=== PATIENT | male | born 1955 | race Caucasian/White ===

== ENCOUNTER → 2017-09-02 | Outpatient (CLI) | payer OTHER | LOC: LAB 15:13 | PROVIDERS: Nurse Practitioner Family | DX: F41.0 Panic disorder [episodic paroxysmal anxiety] (principal) ==

== ENCOUNTER → 2018-05-09 | Outpatient (CLI) | payer MEDICARE ==
[2018-05-09 08:28] LABS: ALBUMIN 4.2 g/dL (3.5-5.0); BUN/CREATININE RATIO 19.5 (6.0-26.0); CALCIUM 9.1 mg/dL (8.4-10.2); POTASSIUM 4.1 mmol/L (3.6-5.0); TOTAL BILIRUBIN 0.6 mg/dL (0.2-1.3); TOTAL PROTEIN 7.4 g/dL (6.3-8.2)
== END ==
LOC: LAB 07:15
PROVIDERS: Family Medicine
DX: Z00.00 Encounter for general adult medical examination without abnormal findings (principal); Z12.5 Encounter for screening for malignant neoplasm of prostate; Z12.12 Encounter for screening for malignant neoplasm of rectum; E78.00 Pure hypercholesterolemia, unspecified; F41.8 Other specified anxiety disorders

== ENCOUNTER → 2018-10-08 | Outpatient (CLI) | payer MEDICARE | LOC: RAD 09:56 | DX: M50.322 Other cervical disc degeneration at C5-C6 level (principal) ==

== ENCOUNTER 2018-12-03 09:00 | Outpatient (RCR) | payer MEDICARE | END 2018-12-03 09:30 | disposition home or self-care (01) | LOC: PT 09:00 | DX: M50.322 Other cervical disc degeneration at C5-C6 level (principal); M25.512 Pain in left shoulder | CPT/HCPCS: G8979-GP; G8981-GP; G8982-GP; G8983-GP ==

== ENCOUNTER → 2019-02-28 | Outpatient (CLI) | payer MEDICARE ==
[~2019-02-28] VITALS: Ht 177.8 cm; Wt 72.7 kg
[~2019-02-28] MED LIST: ALTOPREV20 M1 PO; DESYREL50 MG PO; ZOLOFT25 M1 PO
[2019-02-28 09:30] VITALS: BP 135/77
[2019-02-28 10:36] LABS: HEMATOCRIT 44.3 % (42.0-52.0); HEMOGLOBIN 14.4 g/dL (13.5-18.0); LYMPHOCYTE 23 % (20-51); MEAN CELL VOLUME 87 fl (78-100); MEAN CORPUSCULAR HEMOGLOBIN 28 pg (27-31); MEAN CORPUSCULAR HGB CONC 33 g/dL (33-37); MEAN PLATELET VOLUME 9.8 fl (7.4-10.4); MONOCYTE 8 % (3-10); NEUTROPHILS 54 % (42-75); PLATELET COUNT 211 K/mm3 (130-400); RED CELL DISTRIBUTION WIDTH 13.4 % (11.5-14.5); WHITE BLOOD COUNT 6.1 K/mm3 (4.8-10.8)
[2019-02-28 10:37] LABS: URINE APPEARANCE CLEAR; URINE BILIRUBIN NEGATIVE (NEGATIVE); URINE BLOOD 50 ery/uL (NEGATIVE); URINE COLOR YELLOW; URINE GLUCOSE NEGATIVE (NEGATIVE); URINE KETONE NEGATIVE (NEGATIVE); URINE LEUKOCYTE ESTERASE NEGATIVE (NEGATIVE); URINE NITRATE NEGATIVE (NEGATIVE); URINE PROTEIN(semi-quant) TRACE mg/dL (NEGATIVE); URINE UROBILINOGEN NORMAL (NORMAL); URINE WBC 0-1 /hpf (0-3)
[2019-02-28 10:38] LABS: PROTHROMBIN TIME 10.4 SECONDS (9.0-12.0)
[2019-02-28 10:39] LABS: ALBUMIN 4.2 g/dL (3.4-4.8); CALCIUM 9.8 mg/dL (8.8-10.0); POTASSIUM 4.2 mmol/L (3.5-5.1); TOTAL BILIRUBIN 0.6 mg/dL (0.2-1.2); TOTAL PROTEIN 7.2 g/dL (6.2-8.1)
== END ==
LOC: LAB 08:55
PROVIDERS: Family Medicine
DX: Z01.818 Encounter for other preprocedural examination (principal); M17.10 Unilateral primary osteoarthritis, unspecified knee; E78.00 Pure hypercholesterolemia, unspecified

== ENCOUNTER 2019-05-23 08:00 | Outpatient (RCR) | payer MEDICARE ==
[2019-02-28 09:30] VITALS: BP 135/77
== END 2019-05-23 08:30 | disposition still patient (30) ==
LOC: PT 08:00
DX: M25.561 Pain in right knee (principal); Z96.651 Presence of right artificial knee joint

== ENCOUNTER → 2019-06-06 | Outpatient (CLI) | payer MEDICARE ==
[2019-02-28 09:30] VITALS: BP 135/77
== END ==
LOC: LAB 08:02
DX: Z12.5 Encounter for screening for malignant neoplasm of prostate (principal); E78.00 Pure hypercholesterolemia, unspecified

== ENCOUNTER → 2019-06-12 | Outpatient (CLI) | payer MEDICARE ==
[2019-02-28 09:30] VITALS: BP 135/77
== END ==
LOC: RAD 06:57
DX: Z00.00 Encounter for general adult medical examination without abnormal findings (principal); Z12.12 Encounter for screening for malignant neoplasm of rectum; M48.03 Spinal stenosis, cervicothoracic region; M47.812 Spondylosis without myelopathy or radiculopathy, cervical region; F41.8 Other specified anxiety disorders; R00.1 Bradycardia, unspecified; E78.00 Pure hypercholesterolemia, unspecified; M50.31 Other cervical disc degeneration, high cervical region; M50.321 Other cervical disc degeneration at C4-C5 level; M50.322 Other cervical disc degeneration at C5-C6 level; M50.323 Other cervical disc degeneration at C6-C7 level; M50.33 Other cervical disc degeneration, cervicothoracic region; K21.9 Gastro-esophageal reflux disease without esophagitis

== ENCOUNTER → 2019-07-11 | Outpatient (CLI) | payer MEDICARE ==
[2019-02-28 09:30] VITALS: BP 135/77
[2019-07-11 12:17] LABS: HEMATOCRIT 41.3 % (42.0-52.0); HEMOGLOBIN 13.5 g/dL (13.5-18.0); MEAN PLATELET VOLUME 9.2 fl (7.4-10.4); RED BLOOD COUNT 4.83 M/mm3 (4.20-5.60); RED CELL DISTRIBUTION WIDTH 13.8 % (11.5-14.5); WHITE BLOOD COUNT 5.3 K/mm3 (4.8-10.8)
[2019-07-12 13:02] LABS: ALBUMIN 4.1 g/dL (3.4-4.8); POTASSIUM 4.4 mmol/L (3.5-5.1)
[2019-07-12 13:03] LABS: CALCIUM 9.2 mg/dL (8.3-10.5)
[2019-07-12 13:23] LABS: TOTAL BILIRUBIN 0.4 mg/dL (0.2-1.2); TOTAL PROTEIN 6.9 g/dL (6.2-8.1)
== END ==
LOC: LAB 12:04
PROVIDERS: Family Medicine
DX: F41.8 Other specified anxiety disorders (principal); R53.1 Weakness; R53.83 Other fatigue

== ENCOUNTER 2019-07-26 08:00 | Outpatient (RCR) | payer MEDICARE ==
[2019-02-28 09:30] VITALS: BP 135/77
== END 2019-07-26 08:30 | disposition home or self-care (01) ==
LOC: PT 08:00
DX: M50.320 Other cervical disc degeneration, mid-cervical region, unspecified level (principal); M25.512 Pain in left shoulder

== ENCOUNTER → 2019-10-21 | Day surgery (SDC) | payer MEDICARE ==
[2019-02-28 09:30] VITALS: BP 135/77
== END ==
LOC: MSO 08:09
DX: Z12.11 Encounter for screening for malignant neoplasm of colon (principal); K57.30 Diverticulosis of large intestine without perforation or abscess without bleeding; K21.9 Gastro-esophageal reflux disease without esophagitis; F41.9 Anxiety disorder, unspecified; F32.9 Major depressive disorder, single episode, unspecified
CPT/HCPCS: G0121; 00812; J2704; J7120

== ENCOUNTER → 2020-08-06 | Outpatient (CLI) | payer MEDICARE ==
[2019-02-28 09:30] VITALS: BP 135/77
[2020-08-06 09:46] LABS: ALBUMIN 4.2 g/dL (3.4-4.8)
[2020-08-06 09:47] LABS: CALCIUM 9.3 mg/dL (8.3-10.5)
[2020-08-06 09:49] LABS: TOTAL PROTEIN 6.8 g/dL (6.2-8.1)
[2020-08-06 09:50] LABS: TOTAL BILIRUBIN 0.6 mg/dL (0.2-1.2)
== END ==
LOC: LAB 08:54
PROVIDERS: Family Medicine
DX: Z12.5 Encounter for screening for malignant neoplasm of prostate (principal); E78.00 Pure hypercholesterolemia, unspecified

== ENCOUNTER → 2021-08-10 | Outpatient (CLI) | payer MEDICARE ==
[2021-08-10 09:22] LABS: BASO # 0.08 K/mm3 (0.02-0.10); EOS # 0.45 K/mm3 (0.04-0.40); EOS % 6.7 % (0.0-4.0); HEMATOCRIT 45.8 % (42.0-52.0); LYMPH# 1.59 K/mm3 (1.50-4.00); MEAN CELL VOLUME 87 fl (78-100); MEAN CORPUSCULAR HEMOGLOBIN 29 pg (27-31); MEAN CORPUSCULAR HGB CONC 33 g/dL (33-37); MEAN PLATELET VOLUME 9.3 fl (7.4-10.4); MONO # 0.63 K/mm3 (0.20-0.80); NEU # 3.97 K/mm3 (1.40-6.50); PLATELET COUNT 197 K/mm3 (130-400); RED BLOOD COUNT 5.25 M/mm3 (4.20-5.60); RED CELL DISTRIBUTION WIDTH 12.9 % (11.5-14.5); WHITE BLOOD COUNT 6.7 K/mm3 (4.8-10.8)
[2021-08-10 09:51] LABS: POTASSIUM 4.2 mmol/L (3.5-5.1)
[2021-08-10 09:52] LABS: ALBUMIN 4.1 g/dL (3.4-4.8)
[2021-08-10 09:53] LABS: CALCIUM 9.9 mg/dL (8.3-10.5)
[2021-08-10 09:54] LABS: TOTAL PROTEIN 7.3 g/dL (6.2-8.1)
[2021-08-10 09:56] LABS: TOTAL BILIRUBIN 0.6 mg/dL (0.2-1.2)
== END ==
LOC: LAB 08:56
PROVIDERS: Family Medicine
DX: Z00.00 Encounter for general adult medical examination without abnormal findings (principal); Z13.6 Encounter for screening for cardiovascular disorders; Z12.5 Encounter for screening for malignant neoplasm of prostate; Z13.1 Encounter for screening for diabetes mellitus

== ENCOUNTER → 2021-09-17 | Outpatient (CLI) | payer MEDICARE | LOC: LAB 12:12 | DX: U07.1 COVID-19 (principal) ==

== ENCOUNTER → 2022-05-24 | Outpatient (CLI) | payer MEDICARE | LOC: LAB 19:01 | DX: Z20.822 Contact with and (suspected) exposure to COVID-19 (principal) ==

== ENCOUNTER → 2022-05-25 | Outpatient (CLI) | payer MEDICARE ==
[2022-05-25 18:14] LABS: BASO # 0.02 K/mm3 (0.02-0.10); EOS # 0.37 K/mm3 (0.04-0.40); EOS % 5.8 % (0.0-4.0); HEMOGLOBIN 14.4 g/dL (13.5-18.0); LYMPH# 1.18 K/mm3 (1.50-4.00); MEAN CELL VOLUME 88 fl (78-100); MEAN CORPUSCULAR HEMOGLOBIN 29 pg (27-31); MEAN CORPUSCULAR HGB CONC 33 g/dL (33-37); MEAN PLATELET VOLUME 9.4 fl (7.4-10.4); NEU # 4.25 K/mm3 (1.40-6.50); PLATELET COUNT 167 K/mm3 (130-400); RED BLOOD COUNT 5.02 M/mm3 (4.20-5.60); RED CELL DISTRIBUTION WIDTH 12.6 % (11.5-14.5); WHITE BLOOD COUNT 6.4 K/mm3 (4.8-10.8)
[2022-05-25 18:22] LABS: ALBUMIN 4.1 g/dL (3.4-4.8)
[2022-05-25 18:23] LABS: POTASSIUM 4.2 mmol/L (3.5-5.1)
[2022-05-25 18:24] LABS: CALCIUM 9.1 mg/dL (8.3-10.5)
[2022-05-25 18:27] LABS: TOTAL BILIRUBIN 0.5 mg/dL (0.2-1.2)
[2022-05-25 18:55] LABS: URINE APPEARANCE CLEAR; URINE BILIRUBIN NEGATIVE (NEGATIVE); URINE BLOOD 50 ery/uL (NEGATIVE); URINE COLOR YELLOW; URINE GLUCOSE NEGATIVE (NEGATIVE); URINE KETONE NEGATIVE (NEGATIVE); URINE LEUKOCYTE ESTERASE NEGATIVE (NEGATIVE); URINE MUCUS PRESENT (NOT PRESENT); URINE NITRATE NEGATIVE (NEGATIVE); URINE PROTEIN(semi-quant) TRACE (NEGATIVE); URINE UROBILINOGEN NORMAL (NORMAL); URINE WBC 0-1 /hpf (0-3)
== END ==
LOC: LAB 17:54
PROVIDERS: Family Medicine
DX: R19.7 Diarrhea, unspecified (principal)

== ENCOUNTER → 2022-05-26 | Outpatient (CLI) | payer MEDICARE | LOC: LAB 11:00 | DX: R19.7 Diarrhea, unspecified (principal) ==

== ENCOUNTER → 2022-05-30 | Outpatient (CLI) | payer MEDICARE | LOC: LAB 16:15 | DX: R19.7 Diarrhea, unspecified (principal) ==

== ENCOUNTER → 2022-08-10 | Outpatient (CLI) | payer MEDICARE ==
[2022-08-10 09:35] LABS: ALBUMIN 4.1 g/dL (3.4-4.8); POTASSIUM 4.2 mmol/L (3.5-5.1)
[2022-08-10 09:36] LABS: CALCIUM 9.3 mg/dL (8.3-10.5)
[2022-08-10 10:01] LABS: TOTAL BILIRUBIN 0.5 mg/dL (0.2-1.2)
== END ==
LOC: LAB 09:01
PROVIDERS: Family Medicine
DX: Z00.00 Encounter for general adult medical examination without abnormal findings (principal); Z12.5 Encounter for screening for malignant neoplasm of prostate; M50.30 Other cervical disc degeneration, unspecified cervical region; Z13.1 Encounter for screening for diabetes mellitus; E78.00 Pure hypercholesterolemia, unspecified; Z71.89 Other specified counseling

== ENCOUNTER → 2024-08-05 | Outpatient (CLI) | payer MEDICARE ==
[~2024-08-05] MED LIST changes: +TRAMADOL 50 MG TAB PO
[2024-08-05 10:57] LABS: PH-URINE 5.5 (5.0 - 8.0); URINE APPEARANCE CLEAR (CLEAR); URINE BILIRUBIN NEGATIVE (NEGATIVE); URINE COLOR YELLOW (YELLOW); URINE GLUCOSE NEGATIVE (NEGATIVE); URINE KETONE NEGATIVE (NEGATIVE); URINE PROTEIN(semi-quant) NEGATIVE (NEGATIVE)
[2024-08-05 10:58] LABS: URINE BLOOD 1+ (NEGATIVE); URINE LEUKOCYTE ESTERASE NEGATIVE (NEGATIVE); URINE MUCUS PRESENT (NOT PRESENT); URINE NITRATE NEGATIVE (NEGATIVE); URINE WBC 0-1 /hpf (0-3)
== END ==
LOC: LAB 10:37
PROVIDERS: Nurse Practitioner
DX: R31.9 Hematuria, unspecified (principal)

== ENCOUNTER 2024-10-03 18:54 | Emergency (ER) | payer MEDICARE ==
[2024-10-03] MEDS ORDERED: NS 1,000 ML IV SCH (19:15)
[2024-10-03] MEDS ORDERED: Ondansetron 4 MG/2 ML VIAL IV ONE (19:15)
[2024-10-03] MEDS ORDERED: PANTOPRAZOLE SO40 MG PO (19:26)
[2024-10-03] MEDS ORDERED: SERTRALINE HYD100 MG PO (19:26)
[2024-10-03 19:27] LABS: BASO # 0.04 K/mm3 (0.02-0.10); EOS # 0.17 K/mm3 (0.04-0.40); EOS % 2.9 % (0.0-4.0); HEMATOCRIT 43.9 % (42.0-52.0); HEMOGLOBIN 14.5 g/dL (13.5-18.0); LYMPH# 1.34 K/mm3 (1.50-4.00); MEAN CELL VOLUME 87 fl (78-100); MEAN CORPUSCULAR HEMOGLOBIN 29 pg (27-31); MEAN CORPUSCULAR HGB CONC 33 g/dL (33-37); MEAN PLATELET VOLUME 9.5 fl (7.4-10.4); MONO # 0.53 K/mm3 (0.20-0.80); NEU # 3.71 K/mm3 (1.40-6.50); PLATELET COUNT 185 K/mm3 (130-400); RED BLOOD COUNT 5.06 M/mm3 (4.20-5.60); RED CELL DISTRIBUTION WIDTH 12.8 % (11.5-14.5); WHITE BLOOD COUNT 5.8 K/mm3 (4.8-10.8)
[2024-10-03 19:33] LABS: ALBUMIN 4.2 g/dL (3.4-4.8)
[2024-10-03 19:34] LABS: CALCIUM 9.6 mg/dL (8.3-10.5)
[2024-10-03 19:36] LABS: TOTAL PROTEIN 7.1 g/dL (6.2-8.1)
[2024-10-03 19:37] LABS: TOTAL BILIRUBIN 0.5 mg/dL (0.2-1.2)
[2024-10-03 21:13] VITALS: BP 142/88
== END 2024-10-03 21:42 | disposition home or self-care (01) ==
LOC: ED 18:54
PROVIDERS: Nurse Practitioner
DX: I95.1 Orthostatic hypotension (principal); E86.0 Dehydration; R19.7 Diarrhea, unspecified
CPT/HCPCS: J2405; J7030

== ENCOUNTER → 2024-11-07 | Outpatient (CLI) | payer MEDICARE ==
[~2024-11-07] MED LIST changes: +PANTOPRAZOLE SO40 MG PO; +SERTRALINE HYD100 MG PO
[2024-11-07 10:24] LABS: HEMATOCRIT 44.8 % (42.0-52.0); HEMOGLOBIN 14.5 g/dL (13.5-18.0); MEAN PLATELET VOLUME 9.1 fl (7.4-10.4); RED BLOOD COUNT 5.1 M/mm3 (4.20-5.60); WHITE BLOOD COUNT 6.4 K/mm3 (4.8-10.8)
[2024-11-07 10:33] LABS: ALBUMIN 4.3 g/dL (3.4-4.8)
[2024-11-07 10:34] LABS: CALCIUM 10.2 mg/dL (8.3-10.5)
[2024-11-07 10:35] LABS: TOTAL PROTEIN 7.1 g/dL (6.2-8.1)
[2024-11-07 10:37] LABS: TOTAL BILIRUBIN 0.5 mg/dL (0.2-1.2)
[2024-11-07 23:12] LABS: FOLATE (FOLIC ACID) 15.2 ng/mL (2.0-20.0)
== END ==
LOC: LAB 10:03
PROVIDERS: Family Medicine
DX: E78.2 Mixed hyperlipidemia (principal); R20.2 Paresthesia of skin

== ENCOUNTER 2024-11-23 10:16 | Emergency (ER) | payer MEDICARE ==
[~2024-11-23] VITALS: Wt 77.3 kg
[2024-11-23 11:22] LABS: BASO # 0.05 K/mm3 (0.02-0.10); EOS # 0.37 K/mm3 (0.04-0.40); EOS % 6.4 % (0.0-4.0); HEMATOCRIT 41.1 % (42.0-52.0); HEMOGLOBIN 13.8 g/dL (13.5-18.0); LYMPH# 1.06 K/mm3 (1.50-4.00); MEAN CELL VOLUME 87 fl (78-100); MEAN CORPUSCULAR HEMOGLOBIN 29 pg (27-31); MEAN CORPUSCULAR HGB CONC 34 g/dL (33-37); MEAN PLATELET VOLUME 9.3 fl (7.4-10.4); MONO # 0.51 K/mm3 (0.20-0.80); PLATELET COUNT 170 K/mm3 (130-400); RED BLOOD COUNT 4.74 M/mm3 (4.20-5.60); RED CELL DISTRIBUTION WIDTH 12.7 % (11.5-14.5); WHITE BLOOD COUNT 5.8 K/mm3 (4.8-10.8)
[2024-11-23 11:30] LABS: ALBUMIN 3.8 g/dL (3.4-4.8); SODIUM 140 mmol/L (136-145)
[2024-11-23 11:31] LABS: CALCIUM 9.3 mg/dL (8.3-10.5)
[2024-11-23 11:32] LABS: GLUCOSE 97 mg/dL (75-110); TOTAL PROTEIN 6.7 g/dL (6.2-8.1)
[2024-11-23 11:33] LABS: CARBON DIOXIDE 25 mmol/L (23-31)
[2024-11-23 11:34] LABS: TOTAL BILIRUBIN 0.4 mg/dL (0.2-1.2)
[2024-11-23 11:37] LABS: AST-SGOT 18 U/L (5-34)
[2024-11-23 11:39] LABS: ALT/SGPT 23 U/L (0-55)
[2024-11-23] MEDS ORDERED: MECLIZINE PO (11:55)
[2024-11-23 12:07] VITALS: BP 132/78
== END 2024-11-23 12:00 | disposition home or self-care (01) ==
LOC: ED 10:16
PROVIDERS: Family Medicine
DX: H81.10 Benign paroxysmal vertigo, unspecified ear (principal)